=== PATIENT | female | born 2000 | race Two or more races ===

== ENCOUNTER → 2024-08-01 13:52 | Outpatient (CLI) | payer OTHER | END | disposition home or self-care (01) | LOC: LAB 13:52 | PROVIDERS: ATTEND Emergency Medicine | DX: R70.0 Elevated erythrocyte sedimentation rate (principal) ==

== ENCOUNTER 2024-12-16 19:44 | Emergency (ER) | payer OTHER ==
[~2024-12-16] VITALS: Ht 152.4 cm; Wt 54.0 kg
[2024-12-16] MEDS ORDERED: IBUprofen 100 MG/5 ML-120ML ML PO STA (19:49)
[2024-12-16] MEDS ORDERED: IBUprofen 20 MG/ML BLIST.PACK (5ML) PO ONE (19:51)
[2024-12-16 20:17] LABS: BASO % 0.6 % (0.1-1.2); EOS # 0.09 (0.04-0.54); EOS % 1.3 % (0.7-7.0); HEMATOCRIT 32.7 % (34.1-44.9); HEMOGLOBIN 11.3 g/dL (11.2-15.7); LYMPH # 0.62 (1.18-3.74); LYMPH % 9.2 % (19.3-53.1); MEAN CORPUSCULAR HEMOGLOBIN 30.6 pg (25.6-32.2); MONO # 0.42 (0.24-0.82); MONO % 6.2 % (4.7-12.5); NEUT # 5.58 (1.56-6.13); NEUT % 82.4 % (34.0-71.1); PLATELET COUNT 219 K/uL (163-369); RED BLOOD COUNT 3.69 M/uL (3.93-5.22); RED CELL DISTRIBUTION WIDTH 12.4 % (11.6-14.4)
[2024-12-16 20:37] LABS: INFLUENZA B AG NEGATIVE (NEGATIVE)
[2024-12-16 20:38] LABS: INFLUENZA A AG POSITIVE (NEGATIVE)
[2024-12-16] MEDS ORDERED: OSELTAMIVIR PHOSPHATE 75 MG CAPSULE PO ONE (20:41)
[2024-12-16] MEDS ORDERED: OSELTAMIVIR PHOSPHATE 75 MG CAPSULE PO STA (20:42)
[2024-12-16 20:44] LABS: COVID-19 AG NEGATIVE (NEGATIVE)
== END 2024-12-16 21:09 | disposition home or self-care (01) ==
LOC: ER 19:58
PROVIDERS: General Practice
DX: J10.1 Influenza due to other identified influenza virus with other respiratory manifestations (principal); Z20.822 Contact with and (suspected) exposure to COVID-19